=== PATIENT | male | born 1975 | race African-American/Black ===

== ENCOUNTER 2020-01-02 08:06 | Emergency (ER) | payer SELFPAY ==
[~2020-01-02] VITALS: Ht 185.4 cm; Wt 113.0 kg
[~2020-01-02 08:06] MED LIST: MOTRIN; PENI500T
[2020-01-02 08:14] VITALS: BP 161/110
[2020-01-02] MEDS ORDERED: KETOROLAC 60MG/2ML VIAL IM ONE (08:45)
== END 2020-01-02 09:13 | disposition home or self-care (01) ==
LOC: ER 08:06
DX: K08.89 Other specified disorders of teeth and supporting structures (principal); K02.9 Dental caries, unspecified
CPT/HCPCS: 96372; 99283; J1885